=== PATIENT | female | born 1950 | race Caucasian/White ===

== ENCOUNTER 2018-12-13 07:01 | Day surgery (SDC) | payer OTHER, BC ==
[2018-12-06 15:50] VITALS: BMI 27.3
[2018-12-13] MEDS ORDERED: OFLOXACIN 0.3% OPHTHALMIC SOLUTION 5 ML BOTTLE ONE (07:31)
[2018-12-13] MEDS ORDERED: CYCLOPENTOLATE HCL 1% OPHTH SOLN 2 ML BOTTLE ONE (07:31)
[2018-12-13] MEDS ORDERED: PHENYLEPHRINE 2.5% OPHTH SOLN 15 ML BOTTLE ONE (07:32)
[2018-12-13] MEDS ORDERED: KETOROLAC TROMETHAMINE 0.5% EYE DROP 1 DROP DROPS ONE (07:32)
[2018-12-13] MEDS ORDERED: TROPICAMIDE 1% OPHTH SOLN 15 ML BOTTLE ONE (07:32)
[2018-12-13] MEDS: KETOROLAC TROMETHAMINE 0.5% EYE DROP 1 DROP DROPS OS SCH ×5 (07:35→07:55)
[2018-12-13] MEDS: OFLOXACIN 0.3% OPHTHALMIC SOLUTION 5 ML BOTTLE OS SCH ×5 (07:35→07:55)
[2018-12-13] MEDS: CYCLOPENTOLATE HCL 1% OPHTH SOLN 2 ML BOTTLE OS SCH ×5 (07:35→07:55)
[2018-12-13] MEDS: TROPICAMIDE 1% OPHTH SOLN 15 ML BOTTLE OS SCH ×5 (07:35→07:55)
[2018-12-13] MEDS: PHENYLEPHRINE 2.5% OPHTH SOLN 15 ML BOTTLE OS SCH ×5 (07:35→07:55)
[2018-12-13] MEDS ORDERED: POVIDONE-IODINE 5% OPHTHALMIC PREP 30 ML SOLUTION ONE ×2 (08:56→09:35)
[2018-12-13] MEDS ORDERED: ACETYLCHOLINE 1:100 INTRA-OCUL 20 MG/2 ML KIT ONE (08:56)
[2018-12-13] MEDS ORDERED: EPI-SHUGARCAINE (EPINEPHRINE 0.025% & LIDOCAINE-PF 0.75%) 4ML ONE ×2 (08:56→09:33)
[2018-12-13] MEDS ORDERED: TETRACAINE 0.5% OPHTH SOLN 2 ML BOTTLE ONE ×2 (08:56→09:35)
[2018-12-13] MEDS ORDERED: EPINEPHrine/PF 1 MG/1 ML (1:1,000) AMPULE ONE (08:57)
[2018-12-13] MEDS ORDERED: MIDAZOLAM HCL 2 MG/2 ML SINGLE DOSE VIAL ONE (09:27)
[2018-12-13] MEDS ORDERED: ACETAMINOPHEN 325 MG TABLET (FP) PO PRN (09:30)
[2018-12-13] MEDS ORDERED: BSS (NA/CA/MG/K) BALANCED SALT SOLUTION OPHTH SOLN 15 ML BOTTLE ONE (09:33)
[2018-12-13] MEDS ORDERED: BETAXOLOL HCL 0.25% OPHTHALMIC 10 ML DROPSBTL ONE ×2 (09:34→09:39)
[2018-12-13] MEDS ORDERED: BACITRACIN/POLYMYXIN OPH OINT 3.5 GM TUBE ONE (09:34)
[2018-12-13] MEDS ORDERED: NEO/POLYMYX B SULF/DEXAMETH OPHTHALMIC 5ML BOTTLE ONE ×2 (09:39→09:40)
[2018-12-13] MEDS ORDERED: ACETAMINOPHEN 325 MG TABLET (FP) ONE (11:10)
--- NOTE | 2018-12-13 11:34 | OP ---
DATE OF OPERATION: 12/13/2018 PREOPERATIVE DIAGNOSIS: Cataract, left eye. POSTOPERATIVE DIAGNOSIS: Cataract, left eye. PROCEDURE: Cataract extraction via phacoemulsification with insertion of posterior chamber lens implant, left eye, Toric lens. SURGEON: Sarah Eller MD BREAK[employer] M[employer] OPERATOR: Sarah Eller MD ANESTHESIA: Topical with sedation. ESTIMATED BLOOD LOSS: Less than 1 mL. COMPLICATIONS: None. SPECIMENS: None. DESCRIPTION OF PROCEDURE: The patient was identified in the holding area. After all risks, benefits, and alternatives were explained to the patient, informed consent was obtained. The left eye was marked with a marking pen. The patient then entered the operating room on an eye stretcher. After a formal time-out was performed, topical tetracaine eye drops were instilled onto the left eye. The patient was then asked to sit up and look straight ahead, and the cardinal axes of astigmatism were marked using a Toric bubble marker and a Toric marking pen. Then the patient was asked to lay back down, and the left eye was prepped and draped in the usual sterile fashion. An eyelid speculum was placed beneath the eyelid of the left eye. Then the axis of astigmatism was marked onto the cornea, which was noted to be between 145-150 degrees. Once that was performed, an inferotemporal paracentesis incision was created using a 15-degree blade. Topical preservative-free epinephrine and preservative-free lidocaine was then injected into the anterior chamber. Viscoelastic was then injected into the anterior chamber. A 2.4-mm keratome blade was then used to make an superotemporal incision. A 360-degree continuous curvilinear capsulorrhexis was then created using bent cystotome and Utrata forceps. Hydrodissection was performed using balanced saline solution on a cannula. Phacoemulsification was introduced to disassemble and remove the nucleus in its entirety. Irrigation/aspiration was then used to remove any remaining cortical material from the eye. The capsular bag was reformed using viscoelastic. An Tevin Model [id number] with a power of 23.0 diopter serial number [id number] was inspected and found to be defect free and injected into the capsular bag. Irrigation/aspiration was then used to remove any remaining viscoelastic from the eye including posterior to the optic. The intraocular lens was rotated so that the axis of astigmatism was perfectly aligned on the optic and matched the axis of astigmatism on the cornea, which was noted to be between 145-150 degrees. Once that was done, intracameral injection of Miochol was administered, and the pupil came down and was round. All wounds were hydrated with balanced saline solution and noted to be watertight. The anterior chamber was deep. The lens was perfectly centered in the capsular bag with the axis of astigmatism at 145-150 degrees. A red reflex was present, and the eye had adequate pressure. Topical antibiotic eyedrops and ointment were then administered to the left eye. The eyelid speculum was removed from the left eye. The left eye was shielded. The patient tolerated the procedure well. Left the operating room in stable condition to follow up in the eye clinic tomorrow morning at 10 o'clock. SARAH ELLER M.D. [id number]
[2018-12-13] MEDS ORDERED: ONDANSETRON 4 MG/2 ML VIAL IVPUSH PRN (13:16)
[2018-12-13] MEDS ORDERED: LACTATED RINGERS SOLUTION 1,000 ML IV SCH (13:30)
[2018-12-13 14:06] VITALS: TEMP 98.3
[2018-12-13 14:09] VITALS: BP 113/79; PULSE 58
== END 2018-12-13 11:50 | disposition home or self-care (01) ==
LOC: FASU 07:01
PROVIDERS: ATTEND Ophthalmology
PROC: 08RK3JZ Replacement of Left Lens with Synthetic Substitute, Percutaneous Approach (ICD-10-PCS; principal; 2018-12-13 10:13)
DX: H26.9 Unspecified cataract (principal)

== ENCOUNTER 2018-12-27 11:37 | Day surgery (SDC) | payer OTHER, BC ==
[2018-12-12 11:13] VITALS: BMI 27.3
[~2018-12-27 11:37] MED LIST: ACETAMINOPHEN 325 MG TABLET (FP) PO PRN; ONDANSETRON 4 MG/2 ML VIAL IVPUSH PRN; oxyCODONE HCL 5 MG TABLET PO PRN
[2018-12-27] MEDS ORDERED: OFLOXACIN 0.3% OPHTHALMIC SOLUTION 5 ML BOTTLE ONE (12:01)
[2018-12-27] MEDS ORDERED: KETOROLAC TROMETHAMINE 0.5% EYE DROP 1 DROP DROPS ONE (12:01)
[2018-12-27] MEDS ORDERED: CYCLOPENTOLATE HCL 1% OPHTH SOLN 2 ML BOTTLE ONE (12:01)
[2018-12-27] MEDS ORDERED: TROPICAMIDE 1% OPHTH SOLN 15 ML BOTTLE ONE (12:01)
[2018-12-27] MEDS ORDERED: PHENYLEPHRINE 2.5% OPHTH SOLN 15 ML BOTTLE ONE (12:01)
[2018-12-27] MEDS: TROPICAMIDE 1% OPHTH SOLN 15 ML BOTTLE OD SCH ×5 (12:35→12:55)
[2018-12-27] MEDS: PHENYLEPHRINE 2.5% OPHTH SOLN 15 ML BOTTLE OD SCH ×4 (12:35→12:55)
[2018-12-27] MEDS: KETOROLAC TROMETHAMINE 0.5% EYE DROP 1 DROP DROPS OD SCH ×5 (12:35→12:55)
[2018-12-27] MEDS: OFLOXACIN 0.3% OPHTHALMIC SOLUTION 5 ML BOTTLE OD SCH ×5 (12:35→12:55)
[2018-12-27] MEDS: CYCLOPENTOLATE HCL 1% OPHTH SOLN 2 ML BOTTLE OD SCH ×5 (12:35→12:55)
[2018-12-27] MEDS ORDERED: MIDAZOLAM HCL 2 MG/2 ML SINGLE DOSE VIAL ONE ×2 (13:46→14:25)
[2018-12-27] MEDS ORDERED: ACETAMINOPHEN 325 MG TABLET (FP) PO PRN (14:04)
[2018-12-27] MEDS ORDERED: EPI-SHUGARCAINE (EPINEPHRINE 0.025% & LIDOCAINE-PF 0.75%) 4ML ONE (14:06)
[2018-12-27] MEDS ORDERED: NEO/POLYMYX B SULF/DEXAMETH OPHTHALMIC 5ML BOTTLE ONE (14:06)
[2018-12-27] MEDS ORDERED: BETAXOLOL HCL 0.25% OPHTHALMIC 10 ML DROPSBTL ONE (14:06)
[2018-12-27] MEDS ORDERED: BACITRACIN/POLYMYXIN OPH OINT 3.5 GM TUBE ONE (14:06)
[2018-12-27] MEDS ORDERED: POVIDONE-IODINE 5% OPHTHALMIC PREP 30 ML SOLUTION ONE (14:06)
[2018-12-27] MEDS ORDERED: BSS (NA/CA/MG/K) BALANCED SALT SOLUTION OPHTH SOLN 15 ML BOTTLE ONE (14:19)
[2018-12-27 15:34] VITALS: TEMP 98.2
[2018-12-27 16:05] VITALS: BP 110/72; PULSE 49
--- NOTE | 2018-12-28 13:37 | OP ---
DATE OF OPERATION: 12/27/2018 PREOPERATIVE DIAGNOSIS: Cataract, right eye. POSTOPERATIVE DIAGNOSIS: Cataract, right eye. PROCEDURE: Cataract extraction via phacoemulsification with insertion of posterior chamber lens implant, right eye, toric lens. SURGEON: Sarah Eller MD COKE STILL CLEANER: Sarah Eller MD ANESTHESIA: Topical with sedation. ESTIMATED BLOOD LOSS: Less than 1 mL COMPLICATIONS: None. SPECIMENS: None. PROCEDURE: The patient was identified in the holding area. After all risks, benefits and alternatives were explained to the patient, informed consent was obtained. The right eye was marked with a marking pen. The patient then entered the operating room on an eye stretcher. After a formal timeout was performed, the patient was instructed to sit up and look straight ahead and the cardinal axes of astigmatism were marked using a toric bubble marker and a toric marking pen. The patient was then instructed to lie back down and the right eye was prepped and draped in the usual sterile fashion. An eyelid speculum was placed beneath the eyelids of the right eye. Then, the axis of astigmatism was marked onto the cornea using a toric dial and a toric marking pen, which was noted to be about 15 degrees. Then a superotemporal paracentesis incision was created using a 15-degree blade. Topical preservative-free epinephrine and preservative-free lidocaine were then injected into the anterior chamber. Viscoelastic was then injected into the anterior chamber. A 2.4-mm keratome blade was then used to make an inferotemporal incision. A 360-degree continuous curvilinear capsulorrhexis was then created using bent cystotome and Utrata forceps. Hydrodissection was performed using balanced saline solution on a cannula. Phacoemulsification was introduced. It disassembled and removed the nucleus in its entirety. Irrigation/aspiration was then used to remove any remaining cortical material from the eye. The capsular bag was reformed using viscoelastic. An Tevin model [id number] with a power of 22.0 diopters, serial number [id number] was inspected and found to be defect free and injected in the capsular bag. Irrigation/aspiration was then used to remove any remaining viscoelastic from the eye. The intraocular lens was rotated so that the axis of astigmatism on the optic matched the axis of astigmatism on the cornea, which was noted to be around 15 degrees. Then balanced saline solution was used to form the anterior chamber. All wounds were hydrated with balanced saline solution, noted to be watertight. The anterior chamber was deep. The lens was perfectly centered in the capsular bag with the axis of astigmatism at 15 degrees. There was a red reflex present and the eye had adequate pressure. Topical antibiotics eye drops and ointment were then administered to the right eye. The eyelid speculum was removed from the right eye. The right eye was shielded. The patient tolerated the procedure well, left the operating room in stable condition to follow up in the eye clinic tomorrow morning at 10 o'clock. SARAH ELLER M.D. [id number]
== END 2018-12-27 16:10 | disposition home or self-care (01) ==
LOC: FASU 11:37
PROVIDERS: ATTEND Ophthalmology
PROC: 08RJ3JZ Replacement of Right Lens with Synthetic Substitute, Percutaneous Approach (ICD-10-PCS; principal; 2018-12-27 14:39)
DX: H26.9 Unspecified cataract (principal)